=== PATIENT | male | born 1975 | race African-American/Black ===

== ENCOUNTER 2017-08-21 11:36 | Emergency (ER) | payer SELFPAY ==
[~2017-08-21] VITALS: Ht 177.8 cm; Wt 83.9 kg
[2017-08-21 11:50] VITALS: BP 130/85
[2017-08-21] MEDS ORDERED: TETANUS-DIPTH-ACEL PERTUSSIS 0.5ML SYRG IM ONE (12:15)
== END 2017-08-21 12:24 | disposition home or self-care (01) ==
LOC: ER 11:36
DX: S61.031A Puncture wound without foreign body of right thumb without damage to nail, initial encounter (principal); J45.909 Unspecified asthma, uncomplicated; E11.9 Type 2 diabetes mellitus without complications; W22.8XXA Striking against or struck by other objects, initial encounter; Y93.89 Activity, other specified; Y99.8 Other external cause status; Y92.89 Other specified places as the place of occurrence of the external cause
CPT/HCPCS: 90471; 90715